=== PATIENT | male | born 1945 | race Caucasian/White ===

== ENCOUNTER 2017-08-28 13:10 | Emergency (ER) | payer MEDICARE, OTHER ==
[2017-08-28] MEDS ORDERED: Sodium Chloride 0.9% 10 ML Syringe FLUSH PRN (13:57)
--- NOTE | 2017-08-28 16:21 | EDM.PDOC ---
Scribed by Ileana Oh 08/28/17 1620 for Chandrakant Patricio MD ED HPI GENERAL MEDICAL PROBLEM - General Chief Complaint: General Stated Complaint: [id number] FLU AND LIGHT HEADED Time Seen by Provider: 08/28/17 13:55 Source of Information: Reports: Patient, RN, RN Notes Reviewed History Limitations: Reports: No Limitations - History of Present Illness INITIAL COMMENTS - FREE TEXT/NARRATIVE: Patient presents with vomiting approximately 1 hour after every meal that began around Thanksgiving and lasted a few weeks then went away and came back approximately 3-4 weeks ago. Patient reports 20 pound weight loss in past 1 month. He admits to chills. Denies fever, abdominal pain or cough. Admits to diarrhea on/off for 3-4 months. Duration: Getting Worse Location: Reports: Abdomen, Other (chills) Quality: Reports: Ache Severity: Severe Improves with: Reports: None Worsens with: Reports: None Associated Symptoms: Reports: No Other Symptoms - Related Data Allergies Allergy/AdvReac Type Severity Reaction Status Date / Time No Known Allergies Allergy Verified 08/28/17 13:36 Past Medical History HEENT History: Reports: Impaired Vision Cardiovascular History: Reports: Heart Murmur, Hypertension Respiratory History: Reports: COPD Genitourinary History: Reports: Acute Renal Failure, Dialysis, Peritoneal, Other (See Below) (end stage renal disease on peritoneal dialysis) Oncologic (Cancer) History: Reports: Other (See Below) Other Oncologic History: being treated for something - Past Surgical History GI Surgical History: Reports: Appendectomy Social & Family History - Family History Family Medical History: Noncontributory - Tobacco Use Smoking Status *Q: Never Smoker Second Hand Smoke Exposure: No - Caffeine Use Caffeine Use: Reports: Coffee - Recreational Drug Use Recreational Drug Use: No ED ROS GENERAL - Review of Systems Review Of Systems: ROS reveals no pertinent complaints other than HPI. ED EXAM, GENERAL - Physical Exam Exam: See Below Exam Limited By: No Limitations General Appearance: No Apparent Distress, Other (chronically ill, but non-toxic appearing.) Eye Exam: Bilateral Eye: Normal Inspection Ears: Normal External Exam, Normal Canal, Hearing Grossly Normal, Normal TMs Nose: Normal Inspection, Normal Mucosa, No Blood Throat/Mouth: Normal Inspection, Normal Lips, Normal Teeth, Normal Gums, Normal Oropharynx, Normal Voice, No Airway Compromise Head: Atraumatic, Normocephalic Neck: Normal Inspection, Supple, Non-Tender, Full Range of Motion Respiratory/Chest: No Respiratory Distress, No Accessory Muscle Use, Decreased Breath Sounds, Crackles, Wheezing, Prolonged Expiration, Other (course vesicular lung sounds throughout. ). No: Stridor, Retractions, Splinting Cardiovascular: Normal Peripheral Pulses, Regular Rate, Rhythm, No Edema, No Gallop, No JVD, No Murmur, No Rub GI/Abdominal: Other (peritoneal dialysis port, dressing cover not removed for exam.) (Male) Exam: Other (chronic indwelling Georges catheter.) Rectal (Males) Exam: Deferred Back Exam: Normal Inspection, Full Range of Motion, NT Extremities: Normal Inspection, Normal Range of Motion, Non-Tender, Normal Capillary Refill, No Pedal Edema Neurological: Alert, Oriented, CN II-XII Intact, Normal Cognition, Normal Gait, Normal Reflexes, No Motor/Sensory Deficits Psychiatric: Normal Affect, Normal Mood Skin Exam: Warm, Dry, Intact, Normal Color, No Rash Course - Vital Signs Last Recorded V/S: Last Vital Signs Temp 36.6 C 08/28/17 15:30 Pulse 59 L 08/28/17 15:30 Resp 16 08/28/17 15:30 BP 108/63 08/28/17 15:30 Pulse Ox 91 L 08/28/17 15:30 - Orders/Labs/Meds Orders: Active Orders 24 hr Category Date Time Status Peripheral IV Care [RC] . DIRECTED Care 08/28/17 13:57 Active Chest Abdomen Pelvis wo Cont [CT] Stat Exams 08/28/17 15:03 Taken CULTURE BLOOD [BC] Stat Lab 08/28/17 14:05 Received CULTURE BLOOD [BC] Stat Lab 08/28/17 14:13 Received CULTURE STREP A CONFIRMATION [] Stat Lab 08/28/17 13:52 Results STREP SCRN A RAPID W CULT CONF [] Stat Lab 08/28/17 13:52 Results Sodium Chloride 0.9% [Saline Flush] Med 08/28/17 13:57 Active 10 ml FLUSH ASDIRECTED PRN Blood Culture x2 Reflex Set [OM.PC] Stat Oth 08/28/17 13:56 Ordered Peripheral IV Insertion Adult [OM.PC] Stat Oth 08/28/17 13:56 Ordered Medication Orders Sodium Chloride (Saline Flush) 10 ml FLUSH ASDIRECTED PRN PRN Reason: Keep Vein Open Last Admin: 08/28/17 14:08 Dose: 10 ml Labs: Laboratory Tests 08/28/17 08/28/17 08/28/17 Range/Units 13:52 14:05 14:05 WBC 11.1 H (5.0-10.0) 10^3/uL RBC 4.37 L (4.6-6.2) 10^6/uL Hgb 14.1 (14.0-18.0) g/dL Hct 41.6 (40.0-54.0) % MCV 95.2 (80-100) fL MCH 32.3 (27.0-34.0) pg MCHC 33.9 (33.0-35.0) g/dL Plt Count 473 H (150-450) 10^3/uL Neut % (Auto) 86.9 H (42.2-75.2) % Lymph % (Auto) 4.5 L (20.5-50.1) % Webb % (Auto) 8.2 H (2-8) % Eos % (Auto) 0.2 L (1.0-3.0) % Baso % (Auto) 0.2 (0.0-1.0) % Sodium 132 L (135-145) mmol/L Potassium 3.0 L (3.6-5.0) mmol/L Chloride 91 L (101-111) mmol/L Carbon Dioxide 29.0 (21.0-31.0) mmol/L Anion Gap 15.0 BUN 56 H (7-18) mg/dL Creatinine 4.5 H (0.6-1.3) mg/dL Est Cr Clr Drug Dosing 14.50 mL/min Estimated GFR (MDRD) 13 BUN/Creatinine Ratio 12.44 Glucose 123 H (74-105) mg/dL Lactic Acid (0.5-2.2) mmol/L Calcium 7.8 L (8.4-10.2) mg/dl Total Bilirubin 0.8 (0.2-1.0) mg/dL AST 27 (10-42) IU/L ALT 17 (10-60) IU/L Alkaline Phosphatase 95 (42-121) IU/L Lactate Dehydrogenase 209 H (91-180) IU/L Total Protein 6.9 (6.7-8.2) g/dl Albumin 3.0 L (3.2-5.5) g/dl Globulin 3.9 Albumin/Globulin Ratio 0.77 Amylase 57 (28-100) U/L Lipase 39 (22-51) U/L Urine Color Yellow (YELLOW) Urine Appearance Slightly cloudy (CLEAR) Urine pH 8.5 (5.0-9.0) Ur Specific [place] 1.015 (1.005-1.030) Urine Protein >=300 H (NEGATIVE) Urine Glucose (UA) Negative (NEGATIVE) Urine Ketones Negative (NEGATIVE) Urine Occult Blood Negative (NEGATIVE) Urine Nitrite Positive H (NEGATIVE) Urine Bilirubin Negative (NEGATIVE) Urine Urobilinogen 0.2 (0.2-1.0) mg/dL Ur Leukocyte Esterase Small H (NEGATIVE) Urine RBC 0-5 /HPF Urine WBC 5-10 H (0-5/HPF) /HPF Ur Epithelial Cells Rare /HPF Urine Bacteria Moderate H (0-FEW/HPF) /HPF Urine Mucus Not seen /LPF 08/28/17 Range/Units 14:05 WBC (5.0-10.0) 10^3/uL RBC (4.6-6.2) 10^6/uL Hgb (14.0-18.0) g/dL Hct (40.0-54.0) % MCV (80-100) fL MCH (27.0-34.0) pg MCHC (33.0-35.0) g/dL Plt Count (150-450) 10^3/uL Neut % (Auto) (42.2-75.2) % Lymph % (Auto) (20.5-50.1) % Webb % (Auto) (2-8) % Eos % (Auto) (1.0-3.0) % Baso % (Auto) (0.0-1.0) % Sodium (135-145) mmol/L Potassium (3.6-5.0) mmol/L Chloride (101-111) mmol/L Carbon Dioxide (21.0-31.0) mmol/L Anion Gap BUN (7-18) mg/dL Creatinine (0.6-1.3) mg/dL Est Cr Clr Drug Dosing mL/min Estimated GFR (MDRD) BUN/Creatinine Ratio Glucose (74-105) mg/dL Lactic Acid 1.3 (0.5-2.2) mmol/L Calcium (8.4-10.2) mg/dl Total Bilirubin (0.2-1.0) mg/dL AST (10-42) IU/L ALT (10-60) IU/L Alkaline Phosphatase (42-121) IU/L Lactate Dehydrogenase (91-180) IU/L Total Protein (6.7-8.2) g/dl Albumin (3.2-5.5) g/dl Globulin Albumin/Globulin Ratio Amylase (28-100) U/L Lipase (22-51) U/L Urine Color (YELLOW) Urine Appearance (CLEAR) Urine pH (5.0-9.0) Ur Specific [place] (1.005-1.030) Urine Protein (NEGATIVE) Urine Glucose (UA) (NEGATIVE) Urine Ketones (NEGATIVE) Urine Occult Blood (NEGATIVE) Urine Nitrite (NEGATIVE) Urine Bilirubin (NEGATIVE) Urine Urobilinogen (0.2-1.0) mg/dL Ur Leukocyte Esterase (NEGATIVE) Urine RBC /HPF Urine WBC (0-5/HPF) /HPF Ur Epithelial Cells /HPF Urine Bacteria (0-FEW/HPF) /HPF Urine Mucus /LPF Rapid strep: Negative. Influenza A and B: Negative. Meds: Medications Generic Name Dose Route Start Last Admin Trade Name Freq PRN Reason Stop Dose Admin Sodium Chloride 10 ml 08/28/17 13:57 08/28/17 14:08 Saline Flush FLUSH 10 ml ASDIRECTED PRN Administration Keep Vein Open - Radiology Interpretation Free Text/Narrative:: CT chest,abdomen and pelvis: Cholelithiasis.Chronicpancreatitis changes.1.3 calculus in the urinary bladder. Prominent enlargement of prostate.No masses or adenopathy on this non-IV contast exam. See rad report. - Re-Assessments/Exams Free Text/Narrative Re-Assessment/Exam: 08/28/17 15:[address] Casarez (front attendant biopharmaceutical rep) regarding pt's case. He advises using non-contrast CT because the pt still has a fair amount of urine production. Departure - Departure Time of Disposition: 16:12 Disposition: Home, Self-Care 01 Condition: Fair Clinical Impression: Postprandial vomiting, Unintended weight loss, End-stage renal disease on peritoneal dialysis - Discharge Information Instructions: Gastroparesis Forms: ED Department Discharge Additional Instructions: RX: Reglan 10mg. Follow up next week with Dr. Ruiz for recheck and further evaluation. - My Orders Last 24 Hours: My Active Orders 08/28/17 13:52 CULTURE STREP A CONFIRMATION [RM] Stat STREP SCRN A RAPID W CULT CONF [RM] Stat 08/28/17 13:56 Blood Culture x2 Reflex Set [OM.PC] Stat Peripheral IV Insertion Adult [OM.PC] Stat 08/28/17 13:57 Peripheral IV Care [RC] . DIRECTED Sodium Chloride 0.9% [Saline Flush] 10 ml FLUSH ASDIRECTED PRN 08/28/17 14:05 CULTURE BLOOD [BC] Stat 08/28/17 14:13 CULTURE BLOOD [BC] Stat 08/28/17 15:03 Chest Abdomen Pelvis wo Cont [CT] Stat - Assessment/Plan Last 24 Hours: My Active Orders 08/28/17 13:52 CULTURE STREP A CONFIRMATION [RM] Stat STREP SCRN A RAPID W CULT CONF [RM] Stat 08/28/17 13:56 Blood Culture x2 Reflex Set [OM.PC] Stat Peripheral IV Insertion Adult [OM.PC] Stat 08/28/17 13:57 Peripheral IV Care [RC] . DIRECTED Sodium Chloride 0.9% [Saline Flush] 10 ml FLUSH ASDIRECTED PRN 08/28/17 14:05 CULTURE BLOOD [BC] Stat 08/28/17 14:13 CULTURE BLOOD [BC] Stat 08/28/17 15:03 Chest Abdomen Pelvis wo Cont [CT] Stat I have read and agree with the documentation that has been completed regarding this visit. By signing this record, I attest that the documentation was completed in my physical presence and is an accurate record of the encounter.
== END 2017-08-28 16:18 | disposition home or self-care (01) ==
LOC: DL.ED 13:10
DX: R11.10 Vomiting, unspecified (principal); R63.4 Abnormal weight loss; I12.0 Hypertensive chronic kidney disease with stage 5 chronic kidney disease or end stage renal disease; N18.6 End stage renal disease; K80.20 Calculus of gallbladder without cholecystitis without obstruction; N21.0 Calculus in bladder; J44.9 Chronic obstructive pulmonary disease, unspecified; Z99.2 Dependence on renal dialysis
CPT/HCPCS: 36415; 71250; 74176; 80053; 81001; 82150; 83605; 83615; 83690; 85025; 87040; 87081; 87430; 87804; 99284; J7050

== ENCOUNTER 2018-08-02 07:52 | Emergency (ER) | payer MEDICARE, OTHER ==
--- NOTE | 2018-08-02 07:56 | EDM.PDOC ---
ED HPI GENERAL MEDICAL PROBLEM - General Chief Complaint: Respiratory Problem Stated Complaint: SOB Time Seen by Provider: 08/02/18 07:54 Source of Information: Reports: Patient, Old Records, RN, RN Notes Reviewed History Limitations: Reports: No Limitations - History of Present Illness INITIAL COMMENTS - FREE TEXT/NARRATIVE: Pt presents to ER from home by POV with c/o shortness of breath. He tried to shovel snow yesterday and very quickly became short of breath and had some chest pain. Later last evening he also felt some chest pain/pressure, so he laid down and put his arms above his head and that seemed to make the pain worse. He admits to chest pain that radiated down both arms. He denies cough, wheezing, edema, orthopnea, palpitations, fever, or chills. He states he hasn't felt well in general for about a week, with no specific symptoms other that fatigue. Onset: Gradual Duration: Week(s): (1), Constant, Getting Worse Location: Reports: Chest, Generalized Quality: Reports: Ache, Pressure Severity: Moderate Improves with: Reports: Rest Worsens with: Reports: Other (Activity, exertion) Associated Symptoms: Reports: No Other Symptoms - Related Data Allergies Allergy/AdvReac Type Severity Reaction Status Date / Time No Known Allergies Allergy Verified 08/28/17 13:36 Past Medical History HEENT History: Reports: Impaired Vision Cardiovascular History: Reports: Heart Murmur, Hypertension Respiratory History: Reports: COPD Genitourinary History: Reports: Acute Renal Failure, Dialysis, Peritoneal, Other (See Below) (end stage renal disease on peritoneal dialysis) Oncologic (Cancer) History: Reports: Other (See Below) Other Oncologic History: being treated for something - Past Surgical History GI Surgical History: Reports: Appendectomy Social & Family History - Family History Family Medical History: Noncontributory - Tobacco Use Smoking Status *Q: Never Smoker Tobacco Use Within Last Twelve Months: Cigarettes Years of Tobacco use: 50 - Caffeine Use Caffeine Use: Reports: Coffee - Alcohol Use Alcohol Use History: No - Recreational Drug Use Recreational Drug Use: No - Living Situation & Occupation Living situation: Reports: Alone Occupation: Retired ED ROS GENERAL - Review of Systems Review Of Systems: ROS reveals no pertinent complaints other than HPI. ED EXAM, GENERAL - Physical Exam Exam: See Below Exam Limited By: No Limitations General Appearance: Alert, No Apparent Distress, Other (Chronically ill appearing) Eye Exam: Bilateral Eye: Normal Inspection Nose: Normal Inspection Throat/Mouth: Normal Inspection, Normal Lips, Normal Oropharynx, Normal Voice, No Airway Compromise Head: Atraumatic, Normocephalic Neck: Normal Inspection, Supple, Non-Tender, Full Range of Motion Respiratory/Chest: No Respiratory Distress, No Accessory Muscle Use, Chest Non- Tender, Decreased Breath Sounds, Crackles (course breath sounds). No: Rales, Rhonchi, Wheezing Cardiovascular: Normal Peripheral Pulses, Regular Rate, Rhythm, No Edema, No Gallop, No JVD, No Murmur, No Rub GI/Abdominal: Normal Bowel Sounds, Soft, Non-Tender, No Distention. No: Guarding, Rigid, Rebound Back Exam: Normal Inspection Extremities: Normal Inspection, Normal Range of Motion, Non-Tender, Normal Capillary Refill, No Pedal Edema Neurological: Alert, Oriented, CN II-XII Intact, Normal Cognition, Normal Gait, No Motor/Sensory Deficits Psychiatric: Normal Affect, Normal Mood Skin Exam: Warm, Dry, Intact, Normal Color, No Rash EKG INTERPRETATION EKG Date: 08/02/18 Time: 08:12 Rhythm: Other (SR) Rate (Beats/Min): 82 Carmine: Normal P-Wave: Present QRS: Normal ST-T: Other (borderline repol. abnormality) QT: Prolonged Comparison: NA - No Prior EKG Course - Vital Signs Last Recorded V/S: Last Vital Signs Temp 36.3 C 08/02/18 08:01 Pulse 85 08/02/18 08:01 Resp 24 H 08/02/18 08:01 BP 93/64 08/02/18 08:01 Pulse Ox 90 L 08/02/18 08:10 - Orders/Labs/Meds Orders: Active Orders 24 hr Category Date Time Status EKG 12 Lead [EKG Documentation Completion] [RC] STAT Care 08/02/18 08:09 Active Peripheral IV Care [RC] . DIRECTED Care 08/02/18 08:10 Active RT Aerosol Therapy [RC] ASDIRECTED Care 08/02/18 08:10 Active CULTURE BLOOD [BC] Stat Lab 08/02/18 08:10 Received CULTURE BLOOD [BC] Stat Lab 08/02/18 09:03 Received DIGOXIN [CHEM] Stat Lab 08/02/18 08:10 Received INR,PT,PROTHROMBIN TIME [COAG] Stat Lab 08/02/18 08:10 Received PTT,PARTIAL THROMBOPLSTIN TIME [COAG] Stat Lab 08/02/18 08:10 Received UA RFX RAJEEV AND CULT IF INDIC [URIN] Stat Lab 08/02/18 08:10 Ordered Heparin Sodium/0.45% NaCl [Heparin 25,000 Units in 1/2 Med 08/02/18 09:00 Active NS 500 ML] 25,000 units in 500 ml IV TITRATE Sodium Chloride 0.9% [Normal Saline] 500 ml Med 08/02/18 08:15 Active IV .BOLUS Sodium Chloride 0.9% [Saline Flush] Med 08/02/18 08:10 Active 10 ml FLUSH ASDIRECTED PRN Blood Culture x2 Reflex Set [OM.PC] Stat Oth 08/02/18 08:09 Ordered Peripheral IV Insertion Adult [OM.PC] Stat Oth 08/02/18 08:09 Ordered Medication Orders Sodium Chloride (Normal Saline) 500 mls @ 500 mls/hr IV .BOLUS LOGAN Last Admin: 08/02/18 08:24 Dose: 500 mls/hr Heparin Sodium/Sodium Chloride (Heparin 25,000 Units In 1/2 Ns 500 Ml) 25,000 units in 500 mls @ 17.016 mls/hr IV TITRATE LOGAN; Protocol Last Admin: 08/02/18 09:21 Dose: 12 units/kg/hr, 17.016 mls/hr Sodium Chloride (Saline Flush) 10 ml FLUSH ASDIRECTED PRN PRN Reason: Keep Vein Open Last Admin: 08/02/18 08:35 Dose: 10 ml Labs: Laboratory Tests 08/02/18 08/02/18 08/02/18 Range/Units 08:10 08:10 08:10 WBC 10.6 H (5.0-10.0) 10^3/uL RBC 3.05 L (4.6-6.2) 10^6/uL Hgb 11.4 L D (14.0-18.0) g/dL Hct 33.8 L (40.0-54.0) % MCV 110.8 H D (80-100) fL MCH 37.4 H (27.0-34.0) pg MCHC 33.7 (33.0-35.0) g/dL Plt Count 441 (150-450) 10^3/uL Neut % (Auto) 80.1 H (42.2-75.2) % Lymph % (Auto) 7.6 L (20.5-50.1) % Rains % (Auto) 10.5 H (2-8) % Eos % (Auto) 1.3 (1.0-3.0) % Baso % (Auto) 0.5 (0.0-1.0) % Add Manual Diff Yes Neutrophils % (Manual) 79 H (42-75) % Lymphocytes % (Manual) 12 L (20-50) % Monocytes % (Manual) 6 (2-8) % Eosinophils % (Manual) 3 (1-3) % Macrocytosis 1+ slight Sodium 139 (135-145) mmol/L Potassium 3.7 (3.6-5.0) mmol/L Chloride 95 L (101-111) mmol/L Carbon Dioxide 24.0 (21.0-31.0) mmol/L Anion Gap 23.7 BUN 58 H (7-18) mg/dL Creatinine 6.0 H D (0.6-1.3) mg/dL Est Cr Clr Drug Dosing TNP Estimated GFR (MDRD) 9 BUN/Creatinine Ratio 9.66 Glucose 181 H (74-105) mg/dL Lactic Acid 2.9 H (0.5-2.2) mmol/L Calcium 8.2 L (8.4-10.2) mg/dl Total Bilirubin 0.8 (0.2-1.0) mg/dL AST 25 (10-42) IU/L ALT 17 (10-60) IU/L Alkaline Phosphatase 57 (42-121) IU/L Troponin I 0.06 H* (0.00-0.02) ng/ml B-Natriuretic Peptide 2410 H (0-100) pg/ml Total Protein 6.0 L (6.7-8.2) g/dl Albumin 3.0 L (3.2-5.5) g/dl Globulin 3.0 Albumin/Globulin Ratio 1.00 Meds: Medications Generic Name Dose Route Start Last Admin Trade Name Freq PRN Reason Stop Dose Admin Sodium Chloride 500 mls @ 500 mls/hr 08/02/18 08:15 08/02/18 08:24 Normal Saline IV 500 mls/hr .BOLUS LOGAN Administration Heparin Sodium/Sodium Chloride 25,000 units in 500 mls @ 17.016 mls/hr 09:00 08/02/18 09:21 Heparin 25,000 Units In 1/2 Ns 500 Ml IV 12 units/kg/hr TITRATE LOGAN 17.016 mls/hr Administration Protocol 12 UNITS/KG/HR Sodium Chloride 10 ml 08/02/18 08:10 08/02/18 08:35 Saline Flush FLUSH 10 ml ASDIRECTED PRN Administration Keep Vein Open Discontinued Medications Generic Name Dose Route Start Last Admin Trade Name Freq PRN Reason Stop Dose Admin Albuterol/Ipratropium 3 ml 08/02/18 08:10 08/02/18 08:19 Duoneb 3.0-0.5 Mg/3 Ml NEB 08/02/18 08:11 3 ml ONETIME ONE Administration Aspirin 324 mg 08/02/18 08:10 08/02/18 08:32 Aspirin PO 08/02/18 08:11 324 mg ONETIME ONE Administration Aspirin Confirm 08/02/18 08:30 08/02/18 08:59 Aspirin Administered 08/02/18 08:31 81 mg Dose Administration 81 mg .ROUTE .STK-MED ONE Furosemide 40 mg 08/02/18 08:53 08/02/18 08:58 Lasix IVPUSH 08/02/18 08:54 40 mg NOW ONE Administration Heparin Sodium (Porcine) 5,000 units 08/02/18 08:52 08/02/18 08:58 Heparin Sodium IVPUSH 08/02/18 08:53 5,000 units ONETIME ONE Administration - Radiology Interpretation Free Text/Narrative:: CXR: acute CHF/fluid overloaded appearance per Rad. report. Departure - Departure Time of Disposition: 09:05 Disposition: DC/Tfer to Acute Hospital 02 Condition: Serious Clinical Impression: Non-STEMI (non-ST elevated myocardial infarction) Acute CHF (congestive heart failure) Qualifiers: Heart failure type: unspecified Qualified Code(s): I50.9 - Heart failure, unspecified - Discharge Information *PRESCRIPTION DRUG MONITORING PROGRAM REVIEWED*: Not Applicable *COPY OF PRESCRIPTION DRUG MONITORING REPORT IN PATIENT [place]AY: Not Applicable Forms: ED Department Discharge, Interfacility Transfer EMTALA - My Orders Last 24 Hours: My Active Orders 08/02/18 08:09 EKG 12 Lead [EKG Documentation Completion] [RC] STAT Blood Culture x2 Reflex Set [OM.PC] Stat Peripheral IV Insertion Adult [OM.PC] Stat 08/02/18 08:10 Peripheral IV Care [RC] . DIRECTED RT Aerosol Therapy [RC] ASDIRECTED CULTURE BLOOD [BC] Stat DIGOXIN [CHEM] Stat INR,PT,PROTHROMBIN TIME [COAG] Stat PTT,PARTIAL THROMBOPLSTIN TIME [COAG] Stat UA RFX RAJEEV AND CULT IF INDIC [URIN] Stat Sodium Chloride 0.9% [Saline Flush] 10 ml FLUSH ASDIRECTED PRN 08/02/18 08:15 Sodium Chloride 0.9% [Normal Saline] 500 ml IV .BOLUS 08/02/18 09:00 Heparin Sodium/0.45% NaCl [Heparin 25,000 Units in 1/2 NS 500 ML] 25,000 units in 500 ml IV TITRATE 08/02/18 09:03 CULTURE BLOOD [BC] Stat - Assessment/Plan Last 24 Hours: My Active Orders 08/02/18 08:09 EKG 12 Lead [EKG Documentation Completion] [RC] STAT Blood Culture x2 Reflex Set [OM.PC] Stat Peripheral IV Insertion Adult [OM.PC] Stat 08/02/18 08:10 Peripheral IV Care [RC] . DIRECTED RT Aerosol Therapy [RC] ASDIRECTED CULTURE BLOOD [BC] Stat DIGOXIN [CHEM] Stat INR,PT,PROTHROMBIN TIME [COAG] Stat PTT,PARTIAL THROMBOPLSTIN TIME [COAG] Stat UA RFX RAJEEV AND CULT IF INDIC [URIN] Stat Sodium Chloride 0.9% [Saline Flush] 10 ml FLUSH ASDIRECTED PRN 08/02/18 08:15 Sodium Chloride 0.9% [Normal Saline] 500 ml IV .BOLUS 08/02/18 09:00 Heparin Sodium/0.45% NaCl [Heparin 25,000 Units in 1/2 NS 500 ML] 25,000 units in 500 ml IV TITRATE 08/02/18 09:03 CULTURE BLOOD [BC] Stat
[2018-08-02] MEDS ORDERED: Albuterol/Ipratropium 3.0-0.5 MG/3 ML Neb Soln NEB ONE (08:10)
[2018-08-02] MEDS ORDERED: Aspirin 81 MG Tab.Chew PO ONE (08:10)
[2018-08-02] MEDS ORDERED: Sodium Chloride 0.9% 10 ML Syringe FLUSH PRN (08:10)
[2018-08-02] MEDS ORDERED: Sodium Chloride 0.9% 500 ML IV SCH (08:15)
[2018-08-02] MEDS ORDERED: Aspirin 81 MG Tab.Chew ONE (08:30)
--- NOTE | 2018-08-02 08:42 | CR ---
Clinical history: 73-year-old male on peritoneal dialysis complaining of chest pain and shortness of breath who has a history of chronic cough, unintended weight loss, and "bronchiolitis" with COPD changes (2018). Interpretation: Generalized coarse accentuation of interstitial lung markings with prominent curly B lines suggesting venous congestion (dialysis schedule?). Interstitial pneumonitis a differential consideration. Clinical? Normal cardiac silhouette without alveolar edema or dependent pleural fluid accumulation. No focal lobar atelectasis or infiltrate. No new sign of lung mass or lymphadenopathy. CONCLUSION: Abnormal.
[2018-08-02 08:48] LABS: ANION GAP 23.7; CHLORIDE,CL 95 mmol/L (101-111); SODIUM,NA 139 mmol/L (135-145)
[2018-08-02] MEDS ORDERED: Heparin Sodium 5,000 Units/ML Vial IVPUSH ONE (08:52)
[2018-08-02] MEDS ORDERED: Furosemide 40 MG/4 ML VIAL IVPUSH ONE (08:53)
[2018-08-02] MEDS ORDERED: Heparin Sodium/0.45% NaCl 25,000 UNITS/500 ML BAG IV SCH (09:00)
== END 2018-08-02 10:00 ==
LOC: DL.ED 07:52
DX: I21.4 Non-ST elevation (NSTEMI) myocardial infarction (principal); I13.11 Hypertensive heart and chronic kidney disease without heart failure, with stage 5 chronic kidney disease, or end stage renal disease; N18.6 End stage renal disease; I50.9 Heart failure, unspecified; F17.210 Nicotine dependence, cigarettes, uncomplicated
CPT/HCPCS: 36415; 71045; 80053; 80162; 83605; 83880; 84484; 85025; 85610; 85730; 87040; 93005; 94640; 96361; 96365; 96375; 96376; 99285; A9270; J1644; J1940; J7040; J7620-GY

== ENCOUNTER 2018-08-10 13:12 | Emergency (ER) | payer MEDICARE, OTHER ==
[2018-08-10] MEDS ORDERED: Sodium Chloride 0.9% 10 ML Syringe FLUSH PRN ×2 (13:26→13:31)
[2018-08-10] MEDS ORDERED: Sodium Chloride 0.9% 1,000 ML IV ONE (13:31)
[2018-08-10 14:01] LABS: ANION GAP 21.6
[2018-08-10] MEDS ORDERED: Albuterol/Ipratropium 3.0-0.5 MG/3 ML Neb Soln NEB ONE (14:43)
--- NOTE | 2018-08-10 14:46 | CR ---
Clinical history: Peritoneal dialysis patient tiny of chest pain and shortness of breath who was reported to have "generalized venous congestion and/or interstitial pneumonia" chest x-ray 02 August 2018. Interpretation: Abnormal. Heart size smaller and this patient with generalized increased pulmonary venous congestion/cephalization and new dependent bibasilar subpulmonic pleural fluid accumulation (underlying right lower lobe atelectasis or infiltrate). Dialysis scheduled? Fever? No lung mass or hilar lymphadenopathy. No other focal lobar consolidation.
[2018-08-10] MEDS ORDERED: Piperacillin/Tazobactam 2.25 GM in Sodium Chloride 0.9% 50 ML IV ONE (15:11)
--- NOTE | 2018-08-10 15:13 | EDM.PDOC ---
ED HPI GENERAL MEDICAL PROBLEM - General Chief Complaint: General Stated Complaint: NOT DOING WELL, CHEST PAIN Time Seen by Provider: 08/10/18 13:25 Source of Information: Reports: Patient History Limitations: Reports: No Limitations - History of Present Illness INITIAL COMMENTS - FREE TEXT/NARRATIVE: patient comes emergency deformity today with complaints of shortness of breath cough. The patient was just released from the hospital in [place] on Wednesday following a STEMI. On Wednesday he started to feel very weak. He is a peritoneal dialysis patient. He has had nausea vomiting and he's been laying on the floor at home. He has had more of a cough that is congested. No fever no chills. He has some heaviness to his chest but no real pain. No palpitations. No lightheadedness. He has had nausea and vomiting. No diarrhea. No abdominal pain. No ia or urinary frequency. He is not currently a smoker but smoked many times in the past. - Related Data Allergies Allergy/AdvReac Type Severity Reaction Status Date / Time No Known Allergies Allergy Verified 08/10/18 13:23 Home Meds: Home Meds Calcium Acetate [PhosLo] 4 cap PO ASDIRECTED 08/02/18 [History] Digoxin [Digox] 125 mcg PO DAILY 08/02/18 [History] Folic Acid 1 mg PO DAILY 08/02/18 [History] Hydroxyurea 500 mg PO DAILY 08/02/18 [History] Isosorbide Mononitrate [Isosorbide Mononitrate ER] 120 mg PO BID 08/02/18 [ History] Metoprolol Tartrate 25 mg PO BID 08/02/18 [History] Potassium Chloride 10 meq PO DAILY 08/02/18 [History] Sodium Bicarbonate 3 tab PO BID 08/02/18 [History] Aspirin [Ecotrin] 325 mg PO DAILY 08/10/18 [History] Calcitriol [Rocaltrol] 0.25 mcg PO DAILY 08/10/18 [History] Clopidogrel [Plavix] 75 mg PO DAILY 08/10/18 [History] Copper Gluconate [Copper] 2 mg PO ASDIRECTED 08/10/18 [History] Furosemide [Lasix] 40 mg PO DAILY 08/10/18 [History] Heparin Sodium,Porcine/Ns/PF [Heparin 1,000 Unit/500 ml-Ns] 5,000 unit IV ASDIRECTED 08/10/18 [History] atorvaSTATin [Lipitor] 40 mg PO BEDTIME 08/10/18 [History] Past Medical History HEENT History: Reports: Impaired Vision Cardiovascular History: Reports: Heart Murmur, Hypertension Respiratory History: Reports: COPD Genitourinary History: Reports: Acute Renal Failure, Dialysis, Peritoneal, Other (See Below) Oncologic (Cancer) History: Reports: Other (See Below) Other Oncologic History: being treated for something - Past Surgical History GI Surgical History: Reports: Appendectomy Social & Family History - Family History Family Medical History: Noncontributory - Tobacco Use Smoking Status *Q: Former Smoker Used Tobacco, but Quit: Yes Month/Year Tobacco Last Used: 06/25/2018 - Caffeine Use Caffeine Use: Reports: Coffee - Recreational Drug Use Recreational Drug Use: No - Living Situation & Occupation Living situation: Reports: Alone Occupation: Retired ED ROS GENERAL - Review of Systems Review Of Systems: ROS reveals no pertinent complaints other than HPI. ED EXAM, GENERAL - Physical Exam Exam: See Below Exam Limited By: No Limitations General Appearance: Alert, Thin, Cachetic Throat/Mouth: Other (oral mucosa dry) Head: Atraumatic, Normocephalic Neck: Normal Inspection, Supple, Non-Tender Respiratory/Chest: Chest Non-Tender, Respiratory Distress (minimally dyspneic when laying still on the bed but with even very little physical activity such as standing up he becomes quitedyspneic.), Decreased Breath Sounds, Rhonchi ( right lower lobe), Wheezing (right lower lobe), Accessory Muscle Use. No: Retractions Cardiovascular: Normal Peripheral Pulses, Regular Rate, Rhythm GI/Abdominal: Normal Bowel Sounds, Soft, Non-Tender, Other (peritoneal dialysis catheter in place. No erythema induration swelling at the site of entrance.) Back Exam: Normal Inspection, Full Range of Motion Extremities: Normal Inspection, Non-Tender, Normal Capillary Refill Neurological: Alert, Oriented, Normal Cognition, No Motor/Sensory Deficits Psychiatric: Normal Affect, Normal Mood Skin Exam: Dry, Intact, Cool, Ecchymosis (e has quite a bit of old type of bruising versus ecchymosis over his upper extremities which has been there for quite some time.) Course - Vital Signs Last Recorded V/S: Last Vital Signs Temp 36.7 C 08/10/18 13:15 Pulse 70 08/10/18 13:15 Resp 20 08/10/18 13:15 BP 80/56 L 08/10/18 13:15 Pulse Ox 96 08/10/18 14:43 - Orders/Labs/Meds Labs: Laboratory Tests 08/10/18 08/10/18 08/10/18 Range/Units 13:34 13:34 13:34 WBC 12.3 H (5.0-10.0) 10^3/uL RBC 2.50 L (4.6-6.2) 10^6/uL Hgb 9.2 L D (14.0-18.0) g/dL Hct 27.9 L (40.0-54.0) % MCV 111.6 H (80-100) fL MCH 36.8 H (27.0-34.0) pg MCHC 33.0 (33.0-35.0) g/dL Plt Count 435 (150-450) 10^3/uL Neut % (Auto) 87.3 H (42.2-75.2) % Lymph % (Auto) 4.1 L (20.5-50.1) % [place] % (Auto) 7.1 (2-8) % Eos % (Auto) 1.1 (1.0-3.0) % Baso % (Auto) 0.4 (0.0-1.0) % PT 11.0 (9.0-12.0) SEC INR 1.1 (0.9-1.2) Sodium 133 L (135-145) mmol/L Potassium 3.6 (3.6-5.0) mmol/L Chloride 88 L (101-111) mmol/L Carbon Dioxide 27.0 (21.0-31.0) mmol/L Anion Gap 21.6 BUN 57 H (7-18) mg/dL Creatinine 7.1 H (0.6-1.3) mg/dL Est Cr Clr Drug Dosing 8.57 mL/min Estimated GFR (MDRD) 8 BUN/Creatinine Ratio 8.02 Glucose 276 H (74-105) mg/dL Lactic Acid (0.5-2.2) mmol/L Calcium 7.8 L (8.4-10.2) mg/dl Total Bilirubin 0.7 (0.2-1.0) mg/dL AST 43 H (10-42) IU/L ALT 27 (10-60) IU/L Alkaline Phosphatase 78 (42-121) IU/L Troponin I 0.24 H* (0.00-0.02) ng/ml C-Reactive Protein (0.0-1.3) mg/dL B-Natriuretic Peptide 2000 H (0-100) pg/ml Total Protein 5.6 L (6.7-8.2) g/dl Albumin 2.7 L (3.2-5.5) g/dl Globulin 2.9 Albumin/Globulin Ratio 0.93 Digoxin (0-2.5) ng/ml 08/10/18 08/10/18 08/10/18 Range/Units 13:34 13:34 14:57 WBC (5.0-10.0) 10^3/uL RBC (4.6-6.2) 10^6/uL Hgb (14.0-18.0) g/dL Hct (40.0-54.0) % MCV (80-100) fL MCH (27.0-34.0) pg MCHC (33.0-35.0) g/dL Plt Count (150-450) 10^3/uL Neut % (Auto) (42.2-75.2) % Lymph % (Auto) (20.5-50.1) % [place] % (Auto) (2-8) % Eos % (Auto) (1.0-3.0) % Baso % (Auto) (0.0-1.0) % PT (9.0-12.0) SEC INR (0.9-1.2) Sodium (135-145) mmol/L Potassium (3.6-5.0) mmol/L Chloride (101-111) mmol/L Carbon Dioxide (21.0-31.0) mmol/L Anion Gap BUN (7-18) mg/dL Creatinine (0.6-1.3) mg/dL Est Cr Clr Drug Dosing mL/min Estimated GFR (MDRD) BUN/Creatinine Ratio Glucose (74-105) mg/dL Lactic Acid 1.8 (0.5-2.2) mmol/L Calcium (8.4-10.2) mg/dl Total Bilirubin (0.2-1.0) mg/dL AST (10-42) IU/L ALT (10-60) IU/L Alkaline Phosphatase (42-121) IU/L Troponin I (0.00-0.02) ng/ml C-Reactive Protein 1.2 (0.0-1.3) mg/dL B-Natriuretic Peptide (0-100) pg/ml Total Protein (6.7-8.2) g/dl Albumin (3.2-5.5) g/dl Globulin Albumin/Globulin Ratio Digoxin 1.1 (0-2.5) ng/ml Meds: Medications Discontinued Medications Generic Name Dose Route Start Last Admin Trade Name Freq PRN Reason Stop Dose Admin Albuterol/Ipratropium 3 ml 08/10/18 14:43 08/10/18 14:52 Duoneb 3.0-0.5 Mg/3 Ml NEB 08/10/18 14:44 3 ml ONETIME ONE Administration Sodium Chloride 1,000 mls @ 250 mls/hr 08/10/18 13:31 08/10/18 13:56 Normal Saline IV 08/10/18 17:30 250 mls/hr .BOLUS ONE Administration Piperacillin Sod/Tazobactam 50 mls @ 100 mls/hr 08/10/18 15:11 08/10/18 15:28 Sod 2.25 gm/ Sodium Chloride IV 08/10/18 15:40 100 mls/hr ONETIME ONE Administration Vancomycin HCl 1 gm/ Sodium 250 mls @ 167 mls/hr 08/10/18 15:11 08/10/18 15: 32 Chloride IV 08/10/18 16:40 167 mls/hr ONETIME ONE Administration Sodium Chloride 1,000 mls @ 200 mls/hr 08/10/18 15:45 08/10/18 15:34 Normal Saline IV 200 mls/hr ASDIRECTED LOGAN Administration Ibuprofen 600 mg 08/10/18 15:40 08/10/18 15:44 Motrin PO 08/10/18 15:41 600 mg ONETIME ONE Administration Sodium Chloride 10 ml 08/10/18 13:26 08/10/18 13:58 Saline Flush FLUSH 10 ml ASDIRECTED PRN Administration Keep Vein Open Sodium Chloride 10 ml 08/10/18 13:31 08/10/18 13:59 Saline Flush FLUSH 10 ml ASDIRECTED PRN Administration Keep Vein Open - Radiology Interpretation Free Text/Narrative:: CXR per radiology noted congestion with fluid ? a atelectasis vs pneumonia RLL. - Re-Assessments/Exams Free Text/Narrative Re-Assessment/Exam: 08/10/18 moe was quite hypotensive when he initially presented with a systolic blood pressure in the 70s. He was given some IV fluid which did improve his blood pressure. Blood cultures 2 pending. Chest x-ray concerning for right lower lobe pneumonia. he has no findings of hypoxia. He is alert an Orientated following about 750 mL of fluid resuscitation his blood pressure is up in the 100s. Due to his recent hospitalization and concerns for pneumonia he was given a dose of Vanco and Zosyn as this would be a hospital-acquired pneumonia. I called and spoke with Dr. Slade at [facility]. HPI ER course findings and concern were relayed to him. He accepted the patient in transfer at this time. oted that the patient have a increased troponin which is most likely due to his recentSTEMI as well as being a peritoneal dialysis patient although his creatinine is quite a bit higher than his baseline.he has no active chest pain and his EKG is unchanged from previous. 08/12/18 08:55 08/12/18 08:55 Departure - Departure Time of Disposition: 15:13 Disposition: DC/Tfer to Acute Hospital 02 Clinical Impression: Hospital-acquired pneumonia - Discharge Information Forms: ED Department Discharge - Assessment/Plan Assessment:: RLL hospital acquired pneumonia Sepsis with septic shock responsive to fluids. Recent StEMI Hx of Peritoneal dialysis. Plan: Transfer to [facility].
[2018-08-10] MEDS ORDERED: Ibuprofen 600 MG Tab PO ONE (15:40)
[2018-08-10] MEDS ORDERED: Sodium Chloride 0.9% 1,000 ML IV SCH (15:45)
== END 2018-08-10 15:53 ==
LOC: DL.ED 13:12
DX: A41.9 Sepsis, unspecified organism (principal); R65.21 Severe sepsis with septic shock; J18.9 Pneumonia, unspecified organism; I25.2 Old myocardial infarction; I10 Essential (primary) hypertension; Z87.891 Personal history of nicotine dependence; Z79.899 Other long term (current) drug therapy
CPT/HCPCS: 36415; 71046; 80053; 80162; 83605; 83880; 84484; 85025; 85610; 86140; 87040; 93005; 94640; 96365; 96366; 96375; 99285; A9270; J2543; J3370; J7030; J7050; J7620-GY